=== PATIENT | female | born 1960 | race Two or more races ===

== ENCOUNTER 2020-07-12 21:20 | Emergency (ER) | payer OTHER ==
[~2020-07-12] VITALS: Ht 157.5 cm; Wt 59.0 kg
--- NOTE | 2020-07-12 21:20 | NUR ---
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
[2020-07-12 22:04] LABS: BASOPHILS % (AUTO) 0.4 % (0.0-2.0); EOSINOPHILS % (AUTO) 2.9 % (0.0-6.0); HEMATOCRIT 40 % (33-45); HEMOGLOBIN 13.1 g/dL (11.5-14.8); LYMPHOCYTES # (AUTO) 1.6 /CMM (0.8-4.8); LYMPHOCYTES % (AUTO) 36.5 % (20.0-44.0); MEAN CORPUSCULAR HGB CONC 33 g/dl (31.0-36.0); MEAN CORPUSCULAR VOLUME 89 fL (82-100); MONOCYTES # (AUTO) 0.5 /CMM (0.1-1.30); MONOCYTES % (AUTO) 10.8 % (2.0-12.0); NEUTROPHILS # (AUTO) 2.1 /CMM (1.8-8.9); NEUTROPHILS % (AUTO) 49.4 % (43.0-81.0); PLATELET COUNT (AUTO) 300 /CMM (150-450); RED BLOOD CELL COUNT(AUTO) 4.45 MIL/uL (4.0-5.2); WHITE BLOOD COUNT (AUTO) 4.3 K/uL (4.3-11.0)
--- NOTE | 2020-07-12 22:10 | NUR ---
CALLED CODE STROKE
[2020-07-12 22:15] LABS: CALCIUM, SERUM 9.4 mg/dL (8.5-10.1); CARBON DIOXIDE 28 mmol/L (21-32); CHLORIDE 103 mmol/L (98-107); CREATININE 0.6 mg/dL (0.6-1.3); GLUCOSE 95 mg/dL (74-106); SODIUM SERUM 138 mmol/L (136-145); UREA NITROGEN, BLOOD 15 mg/dL (7-18)
--- NOTE | 2020-07-12 22:18 | NUR ---
BACK FROM CT
[2020-07-12 22:20] LABS: ALANINE AMINOTRANSFERASE 20 U/L (12-78); ALBUMIN 3.8 g/dL (3.4-5.0); ALKALINE PHOSPHATASE 109 U/L (46-116); ASPARTATE AMINOTRANSFERASE 12 U/L (15-37); BILIRUBIN,DIRECT 0.1 mg/dL (0.0-0.2); BILIRUBIN,TOTAL 0.4 mg/dL (0.2-1.0); TOTAL PROTEIN, SERUM 7.4 g/dL (6.4-8.2)
--- NOTE | 2020-07-12 22:20 | NUR ---
DR. DOTSON SPEAKING WITH NEURO MD
[2020-07-12] MEDS ORDERED: ASPIRIN 81 MG TAB.CHEW PO ONE (23:00)
[2020-07-12] MEDS ORDERED: LORAZEPAM 1 MG TABLET PO ONE (23:00)
[2020-07-12 23:16] LABS: CHOLESTEROL 192 mg/dL (<200); HDL CHOLESTEROL 63 mg/dL (40-60); LDL 115 mg/dL (0-99); TRIGLYCERIDES 114 mg/dL (30-150)
--- NOTE | 2020-07-12 23:53 | NUR ---
DR BLUE [phone] CALL WHEN RESULTS BACK
[2020-07-12] MEDS ORDERED: LORAZEPAM 0.5 MG TABLET ONE (23:55)
[2020-07-12] MEDS ORDERED: ASPIRIN 81 MG TAB.CHEW ONE (23:55)
--- NOTE | 2020-07-13 00:35 | NUR ---
DR. DOTSON SPEAKING WITH DR. CUETO
--- NOTE | 2020-07-13 02:33 | NUR ---
TRANSFER INFORMATION: PT WILL BE TRANSFERRED TO [facility] PER INSURANCE REQUEST [facility] ER (TELE HOLD) ACCEPTING MD: DR. CHARLES NUMBER FOR REPORT: [phone] [facility] AUTH [id number]
--- NOTE | 2020-07-13 02:43 | NUR ---
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 CALLED [facility] FOR TRANSPORTATION, NO [facility] AVAILABLE AT THIS TIME. ATTEMPTED TO CONTACT ARG ([phone]) FOR WHICH COMPANY TO SET UP TRANSPORT, NO ANSWER LEFT MESSAGE. WILL FOLLOW UP
--- NOTE | 2020-07-13 03:00 | NUR ---
[facility] ETA 15-30 MINUTES
--- NOTE | 2020-07-13 03:05 | NUR ---
REPORT GIVEN TO QUINN CHÁVEZ AT [facility]
--- NOTE | 2020-07-13 04:01 | NUR ---
Jorge payne in ED - 07/13/20 at 0406 by CHRIS ATTEMPTED TO CONTACT PT'S DAUGHTER PER REQUEST REGARDING TRANSFER. NO ANSWER, UNABLE TO LEAVE MESSAGE
[2020-07-13 04:04] VITALS: BP 127/80
--- NOTE | 2020-07-13 04:04 | NUR ---
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
== END 2020-07-13 04:04 | disposition short-term general hospital (02) ==
LOC: ER 21:24
DX: R42 Dizziness and giddiness (principal); R20.2 Paresthesia of skin; R29.701 NIHSS score 1; F41.9 Anxiety disorder, unspecified; Z20.822 Contact with and (suspected) exposure to COVID-19
CPT/HCPCS: 36415; 70450; 71045; 80048; 80061; 80076; 82962; 83605; 84484; 85025; 85730; 87081; 87426; 93005; 99291; C9803